=== PATIENT | female | born 1995 | race Caucasian/White ===

== ENCOUNTER 2022-07-07 10:34 | Outpatient (REF) | payer OTHER, SELFPAY ==
[2022-07-07 12:22] LABS: Appearance Urine Clear; Color Urine Yellow; Glucose Urine UA Negative (Negative); Leukocyte Esterase Urine Negative (Negative); Nitrite Urine Negative (Negative); Urine Blood Negative (Negative); Urine Ketones Negative (Negative); Urine Protein Negative (Neg-Trace)
== END 2022-07-07 10:35 | disposition home or self-care (01) ==
LOC: HO.WFDLDS 10:34
PROVIDERS: Visit Provider Nurse Practitioner Family
DX: Z00.00 Encounter for general adult medical examination without abnormal findings (principal)
CPT/HCPCS: 81003

== ENCOUNTER 2022-12-30 10:00 | Outpatient (AMB) | payer OTHER, SELFPAY ==
--- NOTE | 2022-12-30 10:03 | A.OFFPC_ITS ---
Vital Signs 12/30/22 10:04 Height 5 ft 2 in Weight 160 lb BMI 29.3 BP 110/64 Blood Pressure Location Rt brachial Position Sitting Respiration 14 Pulse 115 H Pulse Source Pulse Oximeter Pulse Oximetry (%) 97 Oxygen Delivery Method Room Air Intake Visit Reasons: Follow up pneumonia Intake Note: Patient is here to follow up for pneumonia after being seen at [facility] on December 14 for cough x4.5 weeks. They gave her benzonatate and diagnosed her with bronchitis. Patient reports she went back on December 18, obtain a chest xray which showed pneumonia. Patient reports that she was given prednisone, codeine cough syrup and antibiotics for relief. Patient reports she finished all medications prescribed. Dial Buffer Required: No Accompanied by: Self / Same As Patient Allergies Seasonal Allergies Allergy (Intermediate, Verified 12/30/22 10:36) Sneezing Tobacco use date assessed: 07/07/22 HPI HPI Comments History of Present Illness Details 27-year-old female presents for pneumoni a follow-up. She notes that she was treated for pneumonia at [facility] walk- in in December. Chest x-ray on December 18 revealed pneumonia and atelectasis. She was informed that radiologist recommended a repeat chest x-ray 6 weeks from previous. She reports significant improvement of her symptoms. She reports continued productive cough, with yellow phlegm, that is less frequent. She denies headache, fever, chills, body aches, fatigue, weakness. [facility] Social History Housing: Apartment Patient Tobacco Use Status: Never used Tobacco Tobacco use type: Cigarette e-Cigarette/Vaping Use: Never Used Second Hand Smoke Exposure: No service: No Current occupational status: employed Current occupation: [employer] Cognitive needs: No Hearing needs: No Vision needs: No Review of Systems Const Details: Const Denies chills, Denies fatigue, Denies fever(s), Denies headache(s) and Denies weakness ENT Denies dizziness and Denies headache(s) Card Denies chest pain, Denies lightheadedness, Denies dyspnea and Denies other (Palpitations) Resp Reports cough, Denies dyspnea, Denies wheezing and Denies other ( shortness of breath) GI Denies abdominal pain, Denies melena, Denies hematochezia, Denies change in bowel habits, Denies dyspepsia and Denies nausea Denies hematuria and Denies dysuria Musc Denies abnormal gait, Denies myalgias, Denies arthralgias, Denies numbness and Denies tingling Skin/Breast Denies rash, Denies unusual bruising and Denies wounds Neuro Denies abnormal gait, Denies dizziness, Denies headache(s), Denies memory loss, Denies numbness, Denies Sensory deficit (Neuro), Denies tingling and Denies weakness Psych Denies anxiety, Denies depression, Denies memory loss Endo Denies cold intolerance, Denies fatigue, Denies heat intolerance, Denies polydipsia and Denies polyuria Aller/Immun Denies wheezing Physical exam (Primary Care) Vital Signs: Last Vital Signs Pulse 115 H 12/30/22 10:04 Resp 14 12/30/22 10:04 BP 110/64 12/30/22 10:04 Pulse Ox 97 12/30/22 10:04 Oxygen Delivery Method Room Air 12/30/22 10:04 BMI result Body Mass Index 29.3 Tobacco/Smoking Status: Tobacco use Status Tobacco use date assessed 07/07/22 12/30/22 10:05 Patient Tobacco Use Status Never used Tobacco 12/30/22 10:05 Tobacco use type Cigarette 12/30/22 10:05 e-Cigarette/Vaping Use Never Used 12/30/22 10:05 Const Other: General: no acute distress and well developed Nutritional Appearance: well nourished Orientation/consciousness: patient oriented x3 HENMT Head is normocephalic Bilateral ear canal and TM are normal Nasal turbinates and oropharynx are pink and moist Sinuses are nontender with palpation No auricular or cervical lymphadenopathy Eyes General: appearance normal, both eyes and all related structures Pupils: Equal, round and reactive pupils present EOM: EOMs intact bilaterally Resp Effort & Inspection: normal respiratory effort Auscultation: slight intermittent expiratory wheezing to bilat lower base Cardio Rate: regular rate Rhythm: regular rhythm Heart sounds: S1 normal heart sound present, S2 normal heart sound present, no gallops, no murmurs and no rubs GI Palpation (GI): No Abdominal aortic bruit present, Soft to palpation, nontender, No hepatosplenomegaly present and No Rebound tenderness present Auscultation: normal bowel sounds General: Yes no CVA tenderness Back/Spine/Pelvis Back: no CVA tenderness Cervical Spine: cervical ROM normal and No Cervical spine tenderness Thoracic/Lumbar Spine: thoraco-lumbar ROM normal, No pain with thoraco-lumbar ROM, No thoracic spinal tenderness and No lumbar spinal tenderness Extrem General: Yes normal to inspection, No edema and No calf tenderness Skin General: warm and dry. Normal skin color. Normal skin turgor Neuro General: patient oriented x3, gait normal and no focal neuro deficit Cranial nerves: Yes Equal, round and reactive pupils present Cognition (Neuro): normal cognition Gait exam (Neuro): Normal gait present Sensory Exam: No Sensory deficit (Neuro) Psych Appearance: grossly normal Affect: normal affect Attitude: cooperative Thought process: Normal thought process present Assessment and Plan Assessment & Plan (1) Pneumonia: Code(s): J18.9 - Pneumonia, unspecified organism Plan: Recently diagnosed with PNA. Completed course of antibiotics tx Reports significant improvement with her cough Slight intermittent expiratory wheezing to bilat lower base, otherwise normal physical exam Adequate hydration and rest encouraged Repeat chest x-ray ordered. Advised to get chest x-ray done 6 weeks from previous. Will review result and make changes as needed Return with worsening or new symptoms Verbalized understanding and agreed with treatment plan. Orders: Orders XR chest 2V Today J18.9 - Pneumonia, unspecified organism Coding Level of Care Code Est Pt Level 3 (34098) Diagnoses Pneumonia J18.9
[2022-12-30 10:04] VITALS: BP 110/64; PULSE 115; RESP 14; O2SAT 97; BMI 29.3
== END 2022-12-30 11:00 ==
PROVIDERS: PCP Nurse Practitioner Family; Visit Provider Nurse Practitioner Family
DX: J18.9 Pneumonia, unspecified organism (principal)
CPT/HCPCS: 99213

== ENCOUNTER 2023-01-15 15:09 | Outpatient (REF) | payer OTHER, SELFPAY ==
--- NOTE | ~2023-01-15 | XR_ITS ---
EXAMINATION: XR CHEST 2 VIEWS CLINICAL INFORMATION: Pneumonia. COMPARISON: None. TECHNIQUE: Frontal and lateral views of the chest were obtained. FINDINGS: The heart, great vessels, pulmonary vasculature and mediastinum are normal. The lungs show no focal infiltrate, effusion or pneumothorax. There is no acute osseous abnormality. XR/XR chest 2V IMPRESSION: No active cardiopulmonary disease.
== END 2023-01-15 15:10 | disposition home or self-care (01) ==
LOC: HO.XRAY 15:09
PROVIDERS: PCP Nurse Practitioner Family; Visit Provider Nurse Practitioner Family
DX: J18.9 Pneumonia, unspecified organism (principal)
CPT/HCPCS: 71046

== ENCOUNTER 2024-05-30 10:23 | Outpatient (AMB) | payer OTHER, SELFPAY ==
--- NOTE | 2024-05-30 10:27 | AM.OFFWIN_ITS ---
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 Has been having anxiety every morning, gets chest pain, lightheaded. 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 - She has a history of being a lifelong worrier but has not been formally diagnosed with anxiety until now. The patient self-identifies as experiencing significant anxiety. - Additional stressors include the press ure and uncertainty regarding a potential job change and the recent end of a close friendship, exacerbating her anxiety levels. - Anxiety symptoms are particularly heig htened in the morning and worsen notably before working with specific students during the mid-afternoon. - The patient notes a prior medical hist ory of pericardial effusion, which she states was attributed to a viral cause. This episode was characterized by chest tightness and difficulty breathing, which now contributes to her anxiety about similar symptoms recurring during episodes of stress. - The patient reports a tight chest sens ation and discomfort after physical activity, fearing it might be related to her past medical episode, although currently, there are no ongoing chest pains or palpitations. - She has been unable to see her primary care physician since December 2022, and there are no appointments scheduled currently. Problem List - Anxiety Disorder - Pericardial Effusion (resolved) Patient Instructions - Begin prescribed medication Fluoxetine 10 mg, starting with one tablet daily. - Consider therapy as an adjunct treatme nt; contact Chris, the behavioral health coordinator, for assistance in setting up therapy sessions. - Monitor for any allergic reactions or side effects, including nausea, vomiting, cramping, rash, or swelling of lips, and discontinue if they occur. - Collect prescription medication from [facility] as discussed. - Contact medical provider if anxiety sy mptoms persist or worsen, or if new symptoms develop. Review of Systems - General: No fever no chills - Neurological: No headaches no dizziness - Ear nose throat: No sore throat no hearing difficulty no ear pain - Cardiovascular: No syncope, no chest pain, no palpitations - Gastrointestinal: No nausea vomiting or diarrhea - Endocrine: No polyuria polydipsia no heat intolerance - Genitourinary: No dysuria , no blood in urine Physical Exam - General: No acute distress - HEENT: No acute findings - Neck: Supple - Respiratory system: Able to talk in f ull sentences, no audible wheeze - Cardiovascular: S1-S2 regular in rate and rhythm - Gastrointestinal: No pain - Extremities: No new findings - RECREATION SUPERVISOR: Alert awake oriented x3 motor se nsory intact - Skin: Normal turgor PFSH Social History Housing: Apartment Patient Tobacco Use Status: Never used Tobacco Tobacco use type: Cigarette e-Cigarette/Vaping Use: Never Used Second Hand Smoke Exposure: No service: No Current occupational status: employed Current occupation: [employer] Cognitive needs: No Hearing needs: No Vision needs: No Physical Exam Vital Signs: Last Vital Signs Pulse 77 05/30/24 10:30 BP 124/78 05/30/24 10:30 Pulse Ox 98 05/30/24 10:30 Oxygen Delivery Method Room Air 05/30/24 10:30 Assessment & Plan Assessment & Plan (1) Generalized anxiety disorder with panic attacks: Code(s): F41.1 - Generalized anxiety disorder; F41.0 - Panic disorder [episodic paroxysmal anxiety] Plan History - The patient is a 28-year-old female presenting with anxiety management and discussion of treatment options. 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 - She has a history of being a lifelong worrier but has not been formally diagnosed with anxiety until now. The patient self-identifies as experiencing significant anxiety. - Additional stressors include the pressure and uncertainty regarding a potential job change and the recent end of a close friendship, exacerbating her anxiety levels. - Anxiety symptoms are particularly heightened in the morning and worsen notably before working with specific students during the mid-afternoon. - The patient notes a prior medical history of pericardial effusion, which she states was attributed to a viral cause. This episode was characterized by chest tightness and difficulty breathing, which now contributes to her anxiety about similar symptoms recurring during episodes of stress. - The patient reports a tight chest sensation and discomfort after physical activity, fearing it might be related to her past medical episode, although currently, there are no ongoing chest pains or palpitations. - She has been unable to see her primary care physician since December 2022, and there are no appointments scheduled currently. Problem List - Anxiety Disorder - Pericardial Effusion (resolved) Patient Instructions - Begin prescribed medication Fluoxetine 10 mg, starting with one tablet daily. - Consider therapy as an adjunct treatment; contact Chris, the behavioral health coordinator, for assistance in setting up therapy sessions. - Monitor for any allergic reactions or side effects, including nausea, vomiting, cramping, rash, or swelling of lips, and discontinue if they occur. - Collect prescription medication from [facility] as discussed. - Contact medical provider if anxiety symptoms persist or worsen, or if new symptoms develop. Medications: New fluoxetine 10 mg PO DAILY 30 days 30 caps 0RF Coding Level of Care Code Est Pt Level 4 (07994) Diagnoses Generalized anxiety disorder with panic attacks F41.1; F41.0 Time Spent (min) 30 Comment Most time [id number]
[2024-05-30 10:30] VITALS: BP 124/78; PULSE 77; O2SAT 98
--- OUTSIDE RECORDS SUMMARY | 2024-05-30 12:29 | XMS_ITS | Encounter Summary ---
Demographics Address [address] [place] [address] Home Phone Work Phone Mobile Phone Preferred Language Tajik Marital Status Unknown Evangelical Affiliation Unknown Race White Ethnic Group Unknown Author Organization [facility] Address [address] [place] [phone] Phone Support Name Relationship Address Phone Anne Plata Mother [address] [place] [address] [place] [address] Care Team Providers Care Toe Lining Closer Name Role Phone Rachel Barron MD Primary Care Provider Unavailabl e Encounter Details Date Type Department Care Team (Late st Contact Info) Description 07/04/2017 [facility]version [facility]counter [facility] [address] [address] Aby Galindo MD [address] [place] [address] Social History Tobacco Use Types Packs/Day Years Used Date Smoking Tobacco: Never Assessed Comments Unknown Sex and Gender Information Value Date Recorded Sex Assigned at Not on file Legal Sex Female 6:17 PM EDT Gender Identity Not on file Sexual Orientation Not on file documented as of this encounter Plan of Treatment Not on file documented as of this encounter Visit Diagnoses Not on filedocumented in this encounter Care Teams Toe Lining Closer Relationship Specialty Start Date End Date Rachel Barron MD PCP - General 08/03/19 documented as of this encounter
--- OUTSIDE RECORDS SUMMARY | 2024-05-30 12:29 | XMS_ITS | Clinical Summary ---
Demographics Address [address] [place] [address] Home Phone Work Phone Mobile Phone Preferred Language Sami Marital Status Unknown Presybeterian Affiliation Unknown Race White Ethnic Group Unknown Author Organization [facility] Address [address] [place] [phone] Phone Support Name Relationship Address Phone Anne Plata Mother [address] [place] [address] [place] [address] Care Team Providers Care Petal Shaper Hand Name Role Phone Rachel Barron MD Primary Care Provider Unavailabl e Immunizations Immunization Administration Dates Next Due DTaP 10/15/2000, 8,03/31/1996, 996,1995 HPV, Quadrivalent 01/23/2013,11/10/2011,08/16/19 11 Hep B, ped/adol 06/27/1996,1995,1995 Hib (PRP-T) 01/02/1997, 7,01/28/1996, 996 IPV 10/21/1999 Influenza, injectable, quadrivalent 01/23/2013 MMR 10/15/2000,01/02/1997 Meningococcal Conj (Menactra) MCV4P 11/10/2011,0 08/05/2007 OPV 03/31/1996,01/28/1996,1995 Tdap 08/05/2007 Varicella 08/08/2008,10/02/1996 Family History Relation Name Status Comments Father Alive healthy age: 54 Father's Brother Alive healthy Father's Sister Alive healthy Maternal Grandfather periphe ral artery disease, stroke, [place] diagnosed with HEART DISEASE NOS Maternal Grandmother breast CA diagnosed with MALIGNANT NEOPLASM NOS Mother Alive healthy age: 53 Other Alive Siblings: healt hy Paternal Grandfather Alive heart v jarrell being evaluated and has kidney stones Paternal Grandmother Alive hip rep lacement Social History Tobacco Use Types Packs/Day Years Used Date Smoking Tobacco: Never Assessed Comments Unknown Sex and Gender Information Value Date Recorded Sex Assigned at Not on file Legal Sex Female 6:17 PM EDT Gender Identity Not on file Sexual Orientation Not on file Last Filed Vital Signs Vital Sign Reading Time Taken Comments Blood Pressure 110/68 07/24/2014 12:00 AM EDT Pulse 68 06/12/2010 12:00 AM EDT Temperature 36.8 ??C (98.3 ??F) 08/01/2013 1 2:00 AM EDT Respiratory Rate - - Oxygen Saturation - - Inhaled Oxygen Concentration - - Weight 56.6 kg (124 lb 12.8 oz) 015 12:00 AM EDT Height 157.5 cm (5' 2 ) 07/24/2014 12:0 0 AM EDT Body Mass Index 22.83 07/24/2014 12:00 AM EDT Plan of Treatment Health Maintenance Due Date Last Done Comments Hepatitis B Vaccines (3 of 3 - 3-dose series) 08/22/1996 06/27/1996, 1995, 1995 DTaP,Tdap,and Td Vaccines (7 - Td or Tdap) 08/04/2017 08/05/2007, 10/15/2000, 03/30/1997, Additional history exists Influenza Vaccines (#1) 2023 01/23/2013 COVID-19 Vaccine ( season) 2023 HIB Vaccines Completed 01/02/1997, 03/18, 01/28/1996, Additional history exists IPV Vaccines Completed 10/21/1999, 03/18, 01/28/1996, Additional history exists MMR Vaccines Completed 10/15/2000, 01/02/1997 Varicella Vaccines Completed 08/08/2008, 10/02/1996 Meningococcal Vaccine Completed 11/10/2011, 008 HPV Vaccines Completed 01/23/2013, 10/17, 08/15/2010 Hepatitis A Vaccines Aged Out No long er eligible based on patient's age to complete this topic Men B Vaccine Aged Out No longer elig ible based on patient's age to complete this topic Pneumococcal Vaccine Aged Out No long er eligible based on patient's age to complete this topic Procedures * Due to [facility] law, this organization might not be sharing sensitive test results. Procedure Name Priority Date/Time Associated Diagnosis Comments CHLAMYDIA AND GONORRHEA, AMPLIFIED Routine 07/26/2014 12:00 AM EDT from Last 3 Months or Most Recently Relevant to Health Maintenance Results * Due to [facility] law, this organization might not be sharing sensitive test results. * Chlamydia and Gonorrhoea, Amplified (07/26/2014 12:00 AM EDT) URINE CHLAMYDIA AMP PROBE NEGATIVE CONVERTED LABS Comment: No Chlamydia Trachomatis RNA detected in this patient's sample (REFERENCE RANGE/NORMAL VALUE: NOT DETECTED) URINE GC AMP PROBE NEGATIVE C ONVERTED LABS Comment: No Neisseria Gonorrhoeae RNA detected in this patient's sample (REFERENCE RANGE/NORMAL VALUE: NOT DETECTED) NOTE: This test uses control director-mediated amplification method to detect rRNA from C.Trachomatis and N.Gonorrhoeae. A negative result does not preclude infection. In the case of a negative urine result, testing of an endocervical(female) or urethral(male) specimen is recommended if there is high clinical suspicion of infection. The performance characteristics of this test have not been evaluated in children. The Aptima Combo2 assay is not intended for the evaluation of suspected sexual abuse or for other medico-legal indications. The ordering provider should assess if the patient had consensual sex without risk of sexual abuse. Consult the [facility] if needed. Contact phone number . Therapeutic failure or success cannot be determined with the Aptima Combo2 assay since nucleic acid may persist following appropriate antimicrobial therapy. The Centers for Disease Control and Prevention (CDC) recommends confirmatory retesting using culture or a different nucleic acid amplification test when positive results occur, if indicated. 07/26/2014 Narrative CONVERTED LABS - 07/26/2014 12:00 AM EDT Screening Negative Nataliya Soto ??07/24/2014 02:12:59 PM > Leanna Mesa 07/26/2014 09:43:23 AM > us Leanna Grant NP LAB MICROBIOLOGY - GENERAL ORDER YEISON Final Result CONVERTED LABS from Last 3 Months or Most Recently Relevant to Health Maintenance Care Teams Petal Shaper Hand Relationship Specialty Start Date End Date Rachel Barron MD PCP - General 08/03/19
== END 2024-05-30 11:23 | disposition home or self-care (01) ==
PROVIDERS: PCP Nurse Practitioner Family; Visit Provider Internal Medicine
DX: F41.1 Generalized anxiety disorder (principal); F41.0 Panic disorder [episodic paroxysmal anxiety]

== ENCOUNTER → 2024-05-30 10:23 | Outpatient (BNVA) | payer OTHER, SELFPAY | PROVIDERS: PCP Nurse Practitioner Family; Visit Provider Internal Medicine | DX: Z13.89 Encounter for screening for other disorder (principal) ==

== ENCOUNTER 2024-06-20 11:56 | Outpatient (AMB) | payer OTHER, SELFPAY ==
[2024-06-20 11:58] VITALS: BP 124/78; PULSE 84; O2SAT 98; BMI 29.2
--- NOTE | 2024-06-20 11:58 | MHC.PC.OV ---
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 Allergies Seasonal Allergies Allergy (Intermediate, Verified 06/20/24 11:58) Sneezing Medication List - Last Reconciled 06/20/24 by Jess Carr MD fluoxetine 10 mg PO DAILY 30 days Tobacco use date assessed: 06/20/24 Dental Screening Dental Screen Date: 06/20/24 Did you have a dental visit in the last 12 months?: Yes Did you have a dental problem in the last 6 months where you did not have access to dental care?: No Was dental information given to patient?: Patient has dentist HPI 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 History - The patient is a 28-year-old female presenting with anxiety and panic disorder. 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 - she was started on fluoxetine small dose on June 08 after seeing the provider on May 30 walk-in clinic but delayed initiation due to apprehension. - Mornings have become increasingly difficult, and she has noted increased anxiety during work, particularly on Wednesdays, which resulted in an inability to attend work. - A significant panic attack episode occurred in March without a specific trigger, causing symptoms such as out-of-body experiences and blurred vision, notably during events with bright lights and significant noise. - The patient has reduced her participation in social activities and feels overwhelmed by the thought of going to work or being around many people. - There is a history of cutting back on caffeine due to its anxiety-aggravating effects. Health Maintenance - Blood tests to monitor fasting cholesterol, blood glucose levels, vitamin D, B12, and thyroid function recommended. - Discussed the importance of regular physical exams; noted absence of an exam since early 2022. Medications - Fluoxetine 10 mg daily for anxiety. 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 - Reports feeling exhausted and burnout due to extensive job pressure. - Has recently ceased coffee consumption as it was worsening anxiety symptoms. Family History - No specific family medical or psychiatric history reported or discussed. Problem List - Generalized Anxiety Disorder - Panic Disorder - overweight Patient Instructions - Increase fluoxetine dose to 20 mg as discussed. - Start lorazepam 0.5 mg at night as prescribed. - Complete fasting blood tests as instructed. - Drink two glasses of water before breakfast. To start the day with hydration - Note given to be off for 3 days Review of Systems - General: No fever no chills - Neurological: No headaches no dizziness - Ear nose throat: No sore throat no hearing difficulty no ear pain - Cardiovascular: No syncope, no chest pain, no palpitations - Gastrointestinal: No nausea vomiting or diarrhea - Endocrine: No polyuria polydipsia no heat intolerance - Genitourinary: No dysuria - Skin: No new complaints Physical Exam General: Cooperative, healthy appearing, comfortable, no acute distress Orientation: Patient oriented x3 Head: Normal to inspection Ears: Within normal limit visually Nose: Normal external nose present Face and sinus: Normal facial exam Eyes: Appearance normal, extraocular movement intact pupils reactive Neck: Normal visual inspection and supple Respiratory: Normal respiratory effort and able to speak in complete sentences. Clear to auscultation, no stridor Cardiovascular: S1 and S2 RRR GI: Normal to inspection. Soft to palpation and nontender Skin: Turgor normal, no acute findings Neuro: Patient oriented x3, motor sensory intact, balance intact, tandem pass Extremities: Normal to inspection, knees are okay [facility] Social History Housing: Apartment Patient Tobacco Use Status: Never used Tobacco Tobacco use type: Cigarette e-Cigarette/Vaping Use: Never Used Second Hand Smoke Exposure: No service: No Current occupational status: employed Current occupation: [employer] Cognitive needs: No Hearing needs: No Vision needs: No Questionnaire PHQ-9 Over the last 2 weeks, how often have you been bothered by any of the following problems? 1. Little interest or pleasure in doing things: more than half the days 2. Feeling down, depressed, or hopeless: nearly every day 3. Trouble falling or staying asleep, or sleeping too much: more than half the days 4. Feeling tired or having little energy: more than half the days 5. Poor appetite or overeating: more than half the days 6. Feeling bad about yourself - or that you are a failure or have let yourself or your family down: more than half the days 7. Trouble concentrating on things, such as reading the newspaper or watching television: several days 8. Moving or speaking so slowly that other people could have noticed. Or the opposite - being so fidgety or restless that you have been moving around a lot more than usual: not at all 9. Thoughts that you would be better off or of hurting yourself in some way: not at all Total score: 14 Depression Screening Interpretation: Positive Depression Screening Follow-up: Existing condition and In treatment Depression Screening Done: Yes 55104 - PHQ-9 Billing: Yes Source: Developed by Drs. Cayetano Sharma, Kellie Pettit, Delvin Puga and colleagues, with an educational corazon from [employer]. Thrive Questionnaire Date Thrive assessed: 06/20/24 I am a: Patient What is your living situation today?: I have a steady place to live Within the past 12 months, did the food you bought not last and you didn't have the money to get more?: Never true Within the past 12 months, did you worry whether your food would run out before you got money to buy more?: Never true Do you have trouble paying for medicines?: No Do you have trouble getting transportation to medical appointments?: No Do you have trouble paying your heating and electricity bill?: No Do you have trouble taking care of your child, family member or friend?: No Do you have trouble with day-to-day activities such as bathing, preparing meals, shopping, managing finances, etc.?: No Are you currently unemployed and looking for a job?: No Are you interested in more education?: No Please select the resources that you would like help with: None Currently or been in a relationship where the following occur: No concerns reported THRIVE Score: 0 AUDIT C Alcohol Use Questionnaire (AUDIT-C) 1. How often do you have a drink containing alcohol?: Monthly or less 2. How many drinks containing alcohol do you have on a typical day when you are drinking?: 3 or 4 3. How often do you have six or more drinks on one occasion?: Less than monthly Total Score: 3 Score Reviewed/Action Taken: Yes LUIZA-7 AMB Questionnaire LUIZA-7 Date LUIZA - 7 assessed: 06/20/24 Feeling nervous, anxious, or on edge: 3 = Nearly every day Not being able to stop or control worryin = Nearly every day Worrying too much about different things: 3 = Nearly every day Trouble relaxin = Nearly every day Being so restless that it is hard to sit still: 1 = Several days Becoming easily annoyed or irritable: 0 = Not at all Feeling afraid as if something awful might happen: 3 = Nearly every day Total LUIZA-7 score (0-4 normal; 5-9 mild; 10-14 moderate; 15-21 severe): 16 Source: Developed by Drs. Cayetano Sharma, Kellie Pettit, Delvin Puga and colleagues, with an educational corazon from [employer]. LUIZA-7 Assessment Billing LUIZA-7 Assessment Tool: LUIZA-7 Assessment 63398 Physical exam (Primary Care) Vital Signs: Last Vital Signs Pulse 84 06/20/24 11:58 BP 124/78 06/20/24 11:58 Pulse Ox 98 06/20/24 11:58 Oxygen Delivery Method Room Air 06/20/24 11:58 BMI result Body Mass Index 29.2 Tobacco/Smoking Status: Tobacco use Status Tobacco use date assessed 06/20/24 06/20/24 12:00 Patient Tobacco Use Status Never used Tobacco 06/20/24 12:00 Tobacco use type Cigarette 06/20/24 12:00 e-Cigarette/Vaping Use Never Used 06/20/24 12:00 PHQ-9: PHQ-9 Score PHQ-9: Total score 14 06/20/24 12:30 Depression Screening Interpretation: Positive Depression Screening Follow-up: Existing condition and In treatment Thrive Assessment: Date of Thrive Assessment Date Thrive assessed 06/20/24 06/20/24 12:00 Currently or been in a relationship where the following occur: No concerns reported Coding Level of Care Code New Pt Level 3 (28746) New Pt Prev Care 18-39yr(53576 Diagnoses Encounter for general adult medical examination with abnormal findings Z00.01 Generalized anxiety disorder with panic attacks F41.1; F41.0 Overweight (BMI 25.0-29.9) E66.3 Additional Codes LUIZA-7 Assessment Billing - LUIZA-7 Assessment Tool: LUIZA-7 Assessment 06668 ([id number]) PHQ-9 - 49103 - PHQ-9 Billing: Yes ([id number]) Assessment & Plan Assessment & Plan (1) Encounter for general adult medical examination with abnormal findings: Code(s): Z00.01 - Encounter for general adult medical examination with abnormal findings Category: Medical (2) Generalized anxiety disorder with panic attacks: Code(s): F41.1 - Generalized anxiety disorder; F41.0 - Panic disorder [episodic paroxysmal anxiety] Category: Medical (3) Overweight (BMI 25.0-29.9): Code(s): E66.3 - Overweight Category: Medical Plan Establish care visit and physical exam The patient reports worsening morning anxiety and concerns about having another panic attack. History - The patient is a 28-year-old female presenting with anxiety and panic disorder. 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 - she was started on fluoxetine small dose on June 08 after seeing the provider on May 30 walk-in clinic but delayed initiation due to apprehension. - Mornings have become increasingly difficult, and she has noted increased anxiety during work, particularly on Wednesdays, which resulted in an inability to attend work. - A significant panic attack episode occurred in March without a specific trigger, causing symptoms such as out-of-body experiences and blurred vision, notably during events with bright lights and significant noise. - The patient has reduced her participation in social activities and feels overwhelmed by the thought of going to work or being around many people. - There is a history of cutting back on caffeine due to its anxiety-aggravating effects. Health Maintenance - Blood tests to monitor fasting cholesterol, blood glucose levels, vitamin D, B12, and thyroid function recommended. - Discussed the importance of regular physical exams; noted absence of an exam since early 2022. Medications - Fluoxetine 10 mg daily for anxiety. 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 - Reports feeling exhausted and burnout due to extensive job pressure. - Has recently ceased coffee consumption as it was worsening anxiety symptoms. Family History - No specific family medical or psychiatric history reported or discussed. Problem List - Generalized Anxiety Disorder - Panic Disorder - overweight Patient Instructions - Increase fluoxetine dose to 20 mg as discussed. - Start lorazepam 0.5 mg at night as prescribed. - Complete fasting blood tests as instructed. - Drink two glasses of water before breakfast. To start the day with hydration - Note given to be off for 3 days Orders: Orders Comprehensive Ward. Panel Fast Today F41.0 - Panic disorder [episodic paroxysmal anxiety], F41.1 - Generalized anxiety disorder, Z00.01 - Encounter for general adult medical examination with abnormal findings Complete Blood Count Auto Diff Today F41.0 - Panic disorder [episodic paroxysmal anxiety], F41.1 - Generalized anxiety disorder, Z00.01 - Encounter for general adult medical examination with abnormal findings TSH reflex Free T4 Today F41.0 - Panic disorder [episodic paroxysmal anxiety], F41.1 - Generalized anxiety disorder, Z00.01 - Encounter for general adult medical examination with abnormal findings Lipid Panel Today F41.0 - Panic disorder [episodic paroxysmal anxiety], F41.1 - Generalized anxiety disorder, Z00.01 - Encounter for general adult medical examination with abnormal findings Vitamin D 25-OH (D2 and D3) Today F41.0 - Panic disorder [episodic paroxysmal anxiety], F41.1 - Generalized anxiety disorder, Z00.01 - Encounter for general adult medical examination with abnormal findings Vitamin B12 Today F41.0 - Panic disorder [episodic paroxysmal anxiety], F41.1 - Generalized anxiety disorder, Z00.01 - Encounter for general adult medical examination with abnormal findings UA CC w/rflx Micro + Cult Today F41.0 - Panic disorder [episodic paroxysmal anxiety], F41.1 - Generalized anxiety disorder, Z00.01 - Encounter for general adult medical examination with abnormal findings Medications: New lorazepam 0.5 mg PO BEDTIME PRN 30 tabs 0RF anxiety Changed From fluoxetine 10 mg PO DAILY 30 days 30 caps 0RF To fluoxetine 20 mg PO DAILY 90 days 90 caps 0RF
--- OUTSIDE RECORDS SUMMARY | 2024-06-20 13:30 | XMS_ITS | Encounter Summary ---
Demographics Address [address] [place] [address] Home Phone Work Phone Mobile Phone Preferred Language Jordanian Marital Status Unknown Moravian Affiliation Unknown Race White Ethnic Group Unknown Author Organization [facility] Address [address] [place] [address] Phone Support Name Relationship Address Phone Anne Plata Mother [address] [place] [address] [place] [address] Care Team Providers Care Transliterator Name Role Phone Rachel Barron MD Primary Care Provider Unavailabl e Encounter Details Date Type Department Care Team (Late st Contact Info) Description 07/04/2017 [facility]counter [facility] [address] [address] Aby Galindo MD [address] [place] [address] Social History Tobacco Use Types Packs/Day Years [...] on filedocumented in this encounter Care Teams Transliterator Relationship Specialty Start Date End Date Rachel Barron MD PCP - General 08/03/19 documented as of this encounter
--- OUTSIDE RECORDS SUMMARY | 2024-06-20 13:30 | XMS_ITS | Clinical Summary ---
Demographics Address [address] [place] [address] Home Phone Work Phone Mobile Phone Preferred Language Sinhala Marital Status Unknown Jehovah'S Witness Affiliation Unknown Race White Ethnic Group Unknown Author Organization [facility] Address [address] [place] [address] Phone Support Name Relationship Address Phone Anne Plata Mother [address] [place] [address] [place] [address] Care Team Providers Care Cisco Network Engineer Name Role Phone Rachel Barron MD Primary [...] Maternal Grandfather periphe ral artery disease, stroke, [place] diagnosed with HEART DISEASE NOS Maternal Grandmother [...] complete this topic Procedures * Due to [facility] law, this organization might not be sharing sensitive test results. Procedure Name Priority Date/Time Associated Diagnosis Comments CHLAMYDIA AND GONORRHEA, AMPLIFIED Routine 07/26/2014 12:00 AM EDT from Last 3 Months or Most Recently Relevant to Health Maintenance Results * Due to [facility] law, this organization might not be [...] VALUE: NOT DETECTED) NOTE: This test uses rn cardiac-mediated amplification method to detect rRNA from C.Trachomatis [...] without risk of sexual abuse. Consult the [facility] if needed. Contact phone number . Therapeutic [...] Recently Relevant to Health Maintenance Care Teams Cisco Network Engineer Relationship Specialty Start Date End Date Rachel Barron MD PCP - General 08/03/19
== END 2024-06-20 12:33 | disposition home or self-care (01) ==
LOC: HO.HMCC 11:56
PROVIDERS: PCP Nurse Practitioner Family; Visit Provider Internal Medicine
DX: Z00.00 Encounter for general adult medical examination without abnormal findings (principal); F41.1 Generalized anxiety disorder; F41.0 Panic disorder [episodic paroxysmal anxiety]; E66.3 Overweight; Z68.29 Body mass index [BMI] 29.0-29.9, adult

== ENCOUNTER → 2024-06-20 11:56 | Outpatient (BNVA) | payer OTHER, SELFPAY | PROVIDERS: PCP Nurse Practitioner Family; Visit Provider Internal Medicine | DX: Z00.01 Encounter for general adult medical examination with abnormal findings (principal); F41.1 Generalized anxiety disorder; F41.0 Panic disorder [episodic paroxysmal anxiety]; E66.3 Overweight; Z68.29 Body mass index [BMI] 29.0-29.9, adult | CPT/HCPCS: 96127 ==

== ENCOUNTER 2024-06-21 14:32 | Outpatient (REF) | payer OTHER, SELFPAY ==
--- OUTSIDE RECORDS SUMMARY | 2024-06-21 15:41 | XMS_ITS | Clinical Summary ---
Demographics Address [address] [place] [address] Home Phone Work Phone Mobile Phone Preferred Language Georgian Marital Status Unknown Jainism Affiliation Unknown Race White Ethnic Group Unknown Author Organization [facility] Address [address] [place] [address] Phone Support Name Relationship Address Phone Anne Plata Mother [address] [place] [address] [place] [address] Care Team Providers Care Associate Attorney Name Role Phone Rachel Barron MD Primary [...] Maternal Grandfather periphe ral artery disease, stroke, [place] diagnosed with HEART DISEASE NOS Maternal Grandmother [...] complete this topic Procedures * Due to [facility] law, this organization might not be sharing sensitive test results. Procedure Name Priority Date/Time Associated Diagnosis Comments CHLAMYDIA AND GONORRHEA, AMPLIFIED Routine 07/26/2014 12:00 AM EDT from Last 3 Months or Most Recently Relevant to Health Maintenance Results * Due to [facility] law, this organization might not be sharing [...] VALUE: NOT DETECTED) NOTE: This test uses chief financial officer-mediated amplification method to detect rRNA from C.Trachomatis [...] without risk of sexual abuse. Consult the [facility] if needed. Contact phone number . [...] Recently Relevant to Health Maintenance Care Teams Associate Attorney Relationship Specialty Start Date End Date Rachel Barron MD PCP - General 08/03/19
--- OUTSIDE RECORDS SUMMARY | 2024-06-21 15:41 | XMS_ITS | Encounter Summary ---
Demographics Address [address] [place] [address] Home Phone Work Phone Mobile Phone Preferred Language Indonesian Marital Status Unknown Amish Affiliation Unknown Race White Ethnic Group Unknown Author Organization [facility] Address [address] [place] [address] Phone Support Name Relationship Address Phone Anne Plata Mother [address] [place] [address] [place] [address] Care Team Providers Care Financial Service Professional Name Role Phone Rachel Barron MD Primary Care Provider Unavailabl e Encounter Details Date Type Department Care Team (Late st Contact Info) Description 07/04/2017 [facility]counter [facility] [address] [address] Aby Galindo MD [address] [place] [address] Social History Tobacco Use Types Packs/Day Years [...] on filedocumented in this encounter Care Teams Financial Service Professional Relationship Specialty Start Date End Date Rachel Barron MD PCP - General 08/03/19 documented as of this encounter
[2024-06-21 18:19] LABS: Basophils Percent Auto 0.3 % (0-2); Eosinophils Percent Auto 0.5 % (0-4); Hematocrit 38.4 % (37.0-47.0); Imm Gran Abs Auto 0.02 X10*3/uL (0.00-0.03); Imm Gran Pct Auto 0.2 % (0.0-0.4); Lymphocytes Absolute Auto 3.7 X10*3/uL (1.2-4.9); Lymphocytes Percent Auto 41.4 % (20-40); MANUAL DIFF FLAG SCAN; Mean Corpuscular HGB Conc 33.9 g/dl (31.0-35.0); Mean Corpuscular Hemoglobin 28.7 pg (27.0-33.0); Mean Corpuscular Volume 84.8 fL (80.0-98.0); Mean Platelet Volume 10.9 fL (9.4-12.3); Monocytes Absolute Auto 0.6 X10*3/uL (0.1-1.2); Monocytes Percent Auto 6.3 % (2-11); Neutrophils Absolute Auto 4.5 x10*3/uL (2.0-8.3); Neutrophils Percent Auto 51.3 % (45-73); Platelet Count 252 X10*3/uL (160-400); Red Blood Count 4.53 X10*6/uL (4.20-5.50); Red Cell Distribution Width 13.2 % (11.0-16.0); SCAN SMEAR FLAG 1; White Blood Count 8.8 X10*3/uL (4.8-10.8)
[2024-06-21 18:28] LABS: Appearance Urine Clear; Color Urine Yellow; Glucose Urine UA Negative (Negative); Leukocyte Esterase Urine Negative (Negative); Nitrite Urine Negative (Negative); Specific Gravity - Urine <= 1.005 (1.005-1.025); Urine Blood Negative (Negative); Urine Ketones Negative (Negative); Urine Protein Negative (Neg-Trace)
[2024-06-21 18:40] LABS: SLIDE REVIEW VERIFIED
[2024-06-21 18:44] LABS: Alanine Aminotransferase 10 U/L (0-31); Albumin Level 4.3 g/dL (3.5-5.0); Alkaline Phosphatase 46 U/L (39-117); Anion Gap 11 (12-20); Aspartate Amino Transferase 21 U/L (5-31); Bilirubin Total 0.5 mg/dL (0.0-1.0); Blood Urea Nitrogen 11 mg/dL (9-16); Calcium 9.2 mg/dL (8.4-10.2); Carbon Dioxide 26 mmol/L (22-29); Chloride 103 mmol/L (96-108); Cholesterol 212 mg/dL (<200); Estimated Glomerular Filt Rate > 60; Glucose Fasting 79 mg/dL (60-99); HDL Cholesterol 35 mg/dL (>40); LDL Cholesterol Calculated 156 mg/dL (<100); Potassium 3.9 mmol/L (3.3-5.1); Sodium 136 mmol/L (135-145); Total Protein 7.2 g/dL (6.5-8.0); Triglycerides 108 mg/dL (<150)
[2024-06-21 18:58] LABS: TSH reflex Free T4 1.24 uIU/mL (0.32-4.0)
[2024-06-21 19:00] LABS: Vitamin B12 582 pg/mL (200-900)
[2024-06-26 12:29] LABS: Vitamin D 25-OH, D2 <4 ng/mL; Vitamin D 25-OH, D3 26 ng/mL; Vitamin D 25-OH, Total 26 ng/mL (30-100)
== END 2024-06-21 14:33 | disposition home or self-care (01) ==
LOC: HO.WFDLDS 14:32
PROVIDERS: Visit Provider Internal Medicine
DX: Z00.01 Encounter for general adult medical examination with abnormal findings (principal); F41.0 Panic disorder [episodic paroxysmal anxiety]; F41.1 Generalized anxiety disorder
CPT/HCPCS: 36415; 80053; 80061; 81003; 82306; 82607; 84443; 85025

== ENCOUNTER 2024-07-14 07:54 | Outpatient (AMB) | payer OTHER, SELFPAY ==
--- OUTSIDE RECORDS SUMMARY | 2024-07-14 07:56 | XMS_ITS | Encounter Summary ---
Demographics Address [address] [place] [address] Home Phone Work Phone Mobile Phone Preferred Language Eritrean Marital Status Unknown Restorationist Affiliation Unknown Race White Ethnic Group Unknown Author Organization [facility] Address [address] [place] [address] Phone Support Name Relationship Address Phone Anne Plata Mother [address] [place] [address] [place] [address] Care Team Providers Care Retail Coordinator Name Role Phone Rachel Barron MD Primary Care Provider Unavailabl e Encounter Details Date Type Department Care Team (Late st Contact Info) Description 07/04/2017 [facility]counter [facility] [address] [address] Aby Galindo MD [address] [place] [address] Social History Tobacco Use Types Packs/Day Years [...] on filedocumented in this encounter Care Teams Retail Coordinator Relationship Specialty Start Date End Date Rachel Barron MD PCP - General 08/03/19 documented as of this encounter
--- NOTE | 2024-07-14 08:02 | A.OFFPC_ITS ---
Intake Visit Reasons: 1 week f/up ~ needs to update PCP with Insurance Allergies Seasonal Allergies Allergy (Intermediate, Verified 06/20/24 11:58) Sneezing Medication List - Last Reconciled 07/14/24 by Jess Carr MD fluoxetine 20 mg PO DAILY 90 days lorazepam 0.5 mg PO BEDTIME PRN Tobacco use date assessed: 06/20/24 Dental Screening Dental Screen Date: 06/20/24 HPI 1 week f/up ~ needs to update PCP with Insurance HPI Details History - The patient is a 28-year-old female pr esenting with medication management for depression and anxiety. - The patient has been under treatment w ith fluoxetine (Prozac) for five weeks and reports significant improvement in her condition. - While taking fluoxetine, the patient i nitially experienced gastrointestinal discomfort, including gas pain and nausea, which resolved over time as her body adjusted to the medication. - No current side effects from fluoxetin e are reported. - The patient is also prescribed lorazep am (Ativan) for anxiety and reports it has been very helpful; however, she is concerned about running out and requests a refill. - She occasionally skips lorazepam on we ekends but reports noticing a slight difference in energy levels and overall feeling when not taken on work nights. - The patient typically consumes lorazep am five to six times a week, primarily on work nights, which she finds effective in conjunction with fluoxetine. Problem List - Major Depressive Disorder - Generalized Anxiety Disorder Patient Instructions - Continue the current medication regime n of fluoxetine and lorazepam as prescribed. - Take lorazepam primarily on work night s or as needed. - Monitor any side effects, and report a ny significant changes or new symptoms. - Follow up in three months for evaluati on of medication effectiveness and potential adjustments. Review of Systems - General: No fever no chills - Neurological: No headaches no dizziness - Ear nose throat: No sore throat no hearing difficulty no ear pain - Cardiovascular: No syncope, no chest pain, no palpitations - Gastrointestinal: No nausea vomiting or diarrhea [facility] Social History Housing: Apartment Patient Tobacco Use Status: Never used Tobacco Tobacco use type: Cigarette e-Cigarette/Vaping Use: Never Used Second Hand Smoke Exposure: No service: No Current occupational status: employed Current occupation: [employer] Cognitive needs: No Hearing needs: No Vision needs: No Questionnaire Thrive Questionnaire Date Thrive assessed: 06/20/24 LUIZA-7 AMB Questionnaire LUIZA-7 Date LUIZA - 7 assessed: 06/20/24 Source: Developed by Drs. Cayetano Sharma, Kellie Pettit, Delvin Puga and colleagues, with an educational corazon from [employer]. Physical exam (Primary Care) Tobacco/Smoking Status: Tobacco use Status Tobacco use date assessed 06/20/24 07/14/24 08:03 Patient Tobacco Use Status Never used Tobacco 07/14/24 08:03 Tobacco use type Cigarette 07/14/24 08:03 e-Cigarette/Vaping Use Never Used 07/14/24 08:03 Thrive Assessment: Date of Thrive Assessment Date Thrive assessed 06/20/24 07/14/24 08:03 Telehealth Telehealth Telehealth Platform: [employer]iro[employer] Location of provider rendering services: practice address Location of patient: address on file Patient Identification confirmed using: Name, : Yes Telehealth method: video Patient verbally consented to treatment: Yes Patient verbally consented to billing insurance company: Yes Patient informed of any privacy concerns related to visit: Yes Minutes spent on Phone/Video with Pt.: 13 Coding Level of Care Code Tele Est Pt Level 3 (73560) Diagnoses Generalized anxiety disorder with panic attacks F41.1; F41.0 Assessment & Plan Assessment & Plan (1) Generalized anxiety disorder with panic attacks: Code(s): F41.1 - Generalized anxiety disorder; F41.0 - Panic disorder [episodic paroxysmal anxiety] Category: Medical Plan History - The patient is a 28-year-old female presenting with medication management for depression and anxiety. - The patient has been under treatment with fluoxetine (Prozac) for five weeks and reports significant improvement in her condition. - While taking fluoxetine, the patient initially experienced gastrointestinal discomfort, including gas pain and nausea, which resolved over time as her body adjusted to the medication. - No current side effects from fluoxetine are reported. - The patient is also prescribed lorazepam (Ativan) for anxiety and reports it has been very helpful; however, she is concerned about running out and requests a refill. - She occasionally skips lorazepam on weekends but reports noticing a slight difference in energy levels and overall feeling when not taken on work nights. - The patient typically consumes lorazepam five to six times a week, primarily on work nights, which she finds effective in conjunction with fluoxetine. Problem List - Major Depressive Disorder - Generalized Anxiety Disorder Patient Instructions - Continue the current medication regimen of fluoxetine and lorazepam as prescribed. - Take lorazepam primarily on work nights or as needed. - Monitor any side effects, and report any significant changes or new symptoms. - Follow up in three months for evaluation of medication effectiveness and potential adjustments. Medications: Refilled lorazepam 0.5 mg PO BEDTIME PRN 90 tabs 0RF anxiety fluoxetine 20 mg PO DAILY 90 days 90 caps 0RF
== END 2024-07-14 09:13 | disposition home or self-care (01) ==
LOC: HO.HMCC 07:54
PROVIDERS: PCP Internal Medicine; Visit Provider Internal Medicine
DX: F41.1 Generalized anxiety disorder (principal); F41.0 Panic disorder [episodic paroxysmal anxiety]

== ENCOUNTER → 2024-07-14 07:54 | Outpatient (BNVA) | payer OTHER, SELFPAY | PROVIDERS: PCP Internal Medicine; Visit Provider Internal Medicine | DX: Z13.89 Encounter for screening for other disorder (principal) ==